=== PATIENT | female | born 1955 | race Caucasian/White ===

== ENCOUNTER → 2016-08-16 | Outpatient (REF) | payer MEDICARE, BC | LOC: M SFHCLERA 10:29 | PROVIDERS: ATTEND Physician Assistant | DX: R30.0 Dysuria (principal) | CPT/HCPCS: 81002; 87086; G0463 ==

== ENCOUNTER → 2016-11-30 | Outpatient (CLI) | payer MEDICARE, BC ==
--- NOTE | 2016-11-30 16:05 | REP ---
HISTORY: Pain. COMPARISON: Left knee, three view exam of 12/24/2009. Five views of the right knee show tricompartmental marginal osteophytosis without evidence of an acute fracture or dislocation. There is slight asymmetric patellofemoral joint space narrowing. IMPRESSION: Chronic changes. Five views of the left knee show tricompartmental marginal osteophytosis, increased from the prior exam with slight asymmetric patellofemoral joint space narrowing. There is no acute fracture or dislocation. IMPRESSION: Chronic changes as described above.
== END ==
LOC: M CLY 10:44
PROVIDERS: ATTEND Family Medicine
DX: M25.561 Pain in right knee (principal); M25.562 Pain in left knee; M25.762 Osteophyte, left knee; D64.9 Anemia, unspecified; E78.2 Mixed hyperlipidemia; R61 Generalized hyperhidrosis; R23.2 Flushing
CPT/HCPCS: 73564; 82533; G0463

== ENCOUNTER → 2017-04-08 | Outpatient (CLI) | payer MEDICARE, BC ==
--- NOTE | 2017-04-08 09:32 | REP ---
CHEST, TWO VIEWS: No comparison. There is no evidence of acute infiltrate. No pleural effusion is seen. The heart is normal in size. The mediastinal silhouette is unremarkable. The visualized osseous structures are intact. There is mild calcification of the thoracic aorta. IMPRESSION: No acute pulmonary disease.
== END ==
LOC: M CLY 08:28
PROVIDERS: ATTEND Family Medicine
DX: J45.30 Mild persistent asthma, uncomplicated (principal)
CPT/HCPCS: 71020; G0463

== ENCOUNTER → 2017-08-26 | Outpatient (REF) | payer MEDICARE, BC ==
[2017-08-26 11:41] LABS: BASO # 0.1 10^3/uL (0.0-0.2); BASO % 0.6 % (0.0-1.0); EOS # 0.4 10^3/uL (0.0-0.50); EOS % 2.2 % (0.0-3.0); HEMATOCRIT 45.3 % (36.0-47.0); HEMOGLOBIN 14.4 g/dl (12.0-16.0); IMMATURE GRANULOCYTE % 0.4 % (0-3.0); LYMPH # 3.3 10^3/uL (1.5-4.5); LYMPH % 20.9 % (24.0-44.0); MEAN CORPUSCULAR HEMOGLOBIN 27.3 pg (27.0-33.0); MEAN CORPUSCULAR HGB CONC 31.8 g/dl (32.0-36.5); MEAN CORPUSCULAR VOLUME 85.8 fl (80.0-96.0); MONO # 1.4 10^3/uL (0.0-0.8); MONO % 8.6 % (0.0-5.0); NEUTROPHILS # 10.7 10^3/uL (1.8-7.7); NEUTROPHILS % 67.3 % (36.0-66.0); PLATELET COUNT, AUTOMATED 498 10^3/uL (150-450); RED BLOOD COUNT 5.28 10^6/uL (4.00-5.40); RED CELL DISTRIBUTION WIDTH 14.1 % (11.5-14.5); WHITE BLOOD COUNT 15.9 10^3/uL (4.0-10.0)
[2017-08-26 12:19] LABS: TOTAL T3 137.1 NG/DL (60.0-181.0); VITAMIN B12 LEVEL 332 PG/ML (247-911)
[2017-08-26 12:20] LABS: FOLATE 9.2 NG/ML (>5.4)
[2017-08-26 12:23] LABS: ALBUMIN 3.6 GM/DL (3.2-5.2); ALBUMIN/GLOBULIN RATIO 0.95 (1.00-1.93); ALKALINE PHOSPHATASE 123 U/L (45-117); ALT/SGPT 11 U/L (12-78); ANION GAP 9 MEQ/L (8-16); AST/SGOT 8 U/L (7-37); BILIRUBIN,TOTAL 0.6 MG/DL (0.2-1.0); BLOOD UREA NITROGEN 11 MG/DL (7-18); C REACTIVE PROTEIN QUANTITATIV 3.56 MG/DL (0.00-0.30); CALCIUM LEVEL 9.3 MG/DL (8.8-10.2); CARBON DIOXIDE LEVEL 28 MEQ/L (21-32); CHLORIDE LEVEL 102 MEQ/L (98-107); CREATININE FOR GFR 0.82 MG/DL (0.55-1.30); GLOMERULAR FILTRATION RATE > 60.0 (>45); GLUCOSE, FASTING 95 MG/DL (70-100); IRON (FE) 67 UG/DL (50-170); MAGNESIUM LEVEL 2.2 MG/DL (1.8-2.4); POTASSIUM SERUM 4.7 MEQ/L (3.5-5.1); SODIUM LEVEL 139 MEQ/L (136-145); THYROXINE (T4) 10.6 UG/DL (4.5-12.0); TOTAL PROTEIN 7.4 GM/DL (6.4-8.2)
[2017-08-26 12:30] LABS: ERYTHROCYTE SEDIMENTATION RATE 5 mm/hr (0-30)
== END ==
LOC: M SFHCCLAY 09:27
DX: D64.9 Anemia, unspecified (principal); R53.1 Weakness; M06.9 Rheumatoid arthritis, unspecified
CPT/HCPCS: 82746

== ENCOUNTER 2018-05-16 11:08 | Outpatient (CLI) | payer MEDICARE, BC ==
[2018-05-16] MEDS: FILTER 1.2 MICRON (ADULT TPN/MANNITOL/REMICADE) XX (11:30)
[2018-05-16] MEDS: ACETAMINOPHEN 650MG PO PRIOR TO INFUSION PO (11:30)
[2018-05-16] MEDS ORDERED: NS 1,000 ML IV (11:30)
[2018-05-16] MEDS: inFLIXimab INJECTION 300 MG in NS 220 ML IV (12:10)
== END 2018-05-16 14:45 | disposition home or self-care (01) ==
LOC: M INFU 11:08
DX: M05.79 Rheumatoid arthritis with rheumatoid factor of multiple sites without organ or systems involvement (principal); Z88.0 Allergy status to penicillin; Z88.5 Allergy status to narcotic agent; Z88.8 Allergy status to other drugs, medicaments and biological substances; Z88.2 Allergy status to sulfonamides
CPT/HCPCS: J1745

== ENCOUNTER 2018-05-30 12:47 | Outpatient (CLI) | payer MEDICARE ==
[~2018-05-30] VITALS: Ht 160 cm; Wt 61.7 kg
[2018-05-30] VITALS (8 sets, daily range): BP systolic 111–149; BP diastolic 59–72
[~2018-05-30 12:47] MED LIST: ACET30TAB PO; ALBU20IN; ASPI81TA85 PO; CYMB60CA3 PO; INFL10VL IV; MOBI4TAB PO; POTA10TA16 PO; PREV15CA18 PO; SIMV40TA2 PO; VITA100054 PO; ZYRTTAB8 PO
[2018-05-30] MEDS ORDERED: FILTER 1.2 MICRON (ADULT TPN/MANNITOL/REMICADE) XX ONE (14:00)
[2018-05-30] MEDS ORDERED: inFLIXimab INJECTION 300 MG in NS 220 ML IV ONE (14:00)
[2018-05-30] MEDS ORDERED: ACETAMINOPHEN 650MG PO PRIOR TO INFUSION PO ONE (14:00)
[2018-05-30] MEDS ORDERED: NS 1,000 ML IV SCH (14:00)
== END 2018-05-30 15:50 | disposition home or self-care (01) ==
LOC: M INFU 12:47
PROVIDERS: ATTEND Internal Medicine
DX: M05.79 Rheumatoid arthritis with rheumatoid factor of multiple sites without organ or systems involvement (principal); Z88.1 Allergy status to other antibiotic agents; Z88.5 Allergy status to narcotic agent; Z88.8 Allergy status to other drugs, medicaments and biological substances; Z88.2 Allergy status to sulfonamides
CPT/HCPCS: 96413; 96415; J1745

== ENCOUNTER 2018-06-27 11:44 | Outpatient (CLI) | payer MEDICARE ==
[~2018-06-27] VITALS: Ht 160 cm; Wt 61.7 kg
[2018-06-27] VITALS (8 sets, daily range): BP systolic 122–158; BP diastolic 62–83
[2018-06-27] MEDS ORDERED: inFLIXimab INJECTION 300 MG in NS 220 ML IV ONE (13:00)
[2018-06-27] MEDS ORDERED: NS 1,000 ML IV SCH (13:00)
[2018-06-27] MEDS ORDERED: ACETAMINOPHEN 650MG PO PRIOR TO INFUSION PO ONE (13:00)
[2018-06-27] MEDS ORDERED: FILTER 1.2 MICRON (ADULT TPN/MANNITOL/REMICADE) XX ONE (13:00)
== END 2018-06-27 14:45 | disposition home or self-care (01) ==
LOC: M INFU 11:44
PROVIDERS: ATTEND Internal Medicine
DX: M05.79 Rheumatoid arthritis with rheumatoid factor of multiple sites without organ or systems involvement (principal); Z88.0 Allergy status to penicillin; Z88.5 Allergy status to narcotic agent; Z88.8 Allergy status to other drugs, medicaments and biological substances; Z88.2 Allergy status to sulfonamides; Z88.1 Allergy status to other antibiotic agents
CPT/HCPCS: 96413; 96415; J1745

== ENCOUNTER 2018-08-29 13:15 | Outpatient (CLI) | payer MEDICARE ==
[~2018-08-29] VITALS: Ht 160 cm; Wt 61.7 kg
[2018-08-29] VITALS (8 sets, daily range): BP systolic 104–157; BP diastolic 60–77
[2018-08-29] MEDS ORDERED: NS 1,000 ML IV SCH (13:30)
[2018-08-29] MEDS ORDERED: FILTER 1.2 MICRON (ADULT TPN/MANNITOL/REMICADE) XX ONE (13:30)
[2018-08-29] MEDS ORDERED: ACETAMINOPHEN 650MG PO PRIOR TO INFUSION PO ONE (13:30)
[2018-08-29] MEDS ORDERED: inFLIXimab INJECTION 300 MG in NS 220 ML IV ONE (14:00)
== END 2018-08-29 16:15 | disposition home or self-care (01) ==
LOC: M INFU 13:15
PROVIDERS: ATTEND Internal Medicine
DX: M05.79 Rheumatoid arthritis with rheumatoid factor of multiple sites without organ or systems involvement (principal)
CPT/HCPCS: 96413; 96415; J1745

== ENCOUNTER → 2018-10-18 | Outpatient (REF) | payer MEDICARE ==
[~2018-10-18] MED LIST changes: +ACET-716 PO; -ACET30TAB PO
[2018-10-19 11:54] LABS: FREE T4 0.82 NG/DL (0.76-1.46); THYROID STIMULATING HORMONE 1.26 uIU/ML (0.358-3.740)
[2018-10-19 11:55] LABS: TOTAL T3 121.2 NG/DL (60.0-181.0)
== END ==
LOC: M SFHCCLAY 14:57
PROVIDERS: ATTEND Family Medicine
DX: Z86.39 Personal history of other endocrine, nutritional and metabolic disease (principal)

== ENCOUNTER 2018-10-27 12:01 | Outpatient (CLI) | payer MEDICARE ==
[~2018-10-27] VITALS: Ht 160 cm; Wt 61.7 kg
[2018-10-27 12:24] VITALS: BP 148/89
[2018-10-27] MEDS ORDERED: inFLIXimab INJECTION 300 MG in NS 220 ML IV ONE (12:45)
[2018-10-27] MEDS ORDERED: ACETAMINOPHEN 650MG PO PRIOR TO INFUSION PO ONE (12:45)
[2018-10-27] MEDS ORDERED: FILTER 1.2 MICRON (ADULT TPN/MANNITOL/REMICADE) XX ONE (12:45)
[2018-10-27] MEDS ORDERED: NS 1,000 ML IV SCH (12:45)
[2018-10-27 15:20] VITALS: BP 124/66
== END 2018-10-27 15:30 | disposition home or self-care (01) ==
LOC: M INFU 12:01
PROVIDERS: ATTEND Internal Medicine
DX: M05.79 Rheumatoid arthritis with rheumatoid factor of multiple sites without organ or systems involvement (principal); Z88.0 Allergy status to penicillin; Z88.8 Allergy status to other drugs, medicaments and biological substances; Z88.2 Allergy status to sulfonamides; Z88.1 Allergy status to other antibiotic agents; Z88.5 Allergy status to narcotic agent
CPT/HCPCS: 96413; 96415; J1745

== ENCOUNTER → 2018-11-14 | Outpatient (REF) | payer MEDICARE ==
[2018-11-14 17:26] LABS: BASO % 0.3 % (0.0-1.0); EOS # 0.1 10^3/uL (0.0-0.50); EOS % 1.7 % (0.0-3.0); HEMATOCRIT 47.8 % (36.0-47.0); HEMOGLOBIN 15.1 g/dl (12.0-15.5); LYMPH # 2.5 10^3/uL (1.5-4.5); LYMPH % 39.6 % (24.0-44.0); MEAN CORPUSCULAR HEMOGLOBIN 29.8 pg (27.0-33.0); MEAN CORPUSCULAR HGB CONC 31.6 g/dl (32.0-36.5); MEAN CORPUSCULAR VOLUME 94.5 fl (80.0-96.0); MONO % 15.6 % (0.0-5.0); NEUTROPHILS # 2.7 10^3/uL (1.8-7.7); NEUTROPHILS % 42.5 % (36.0-66.0); PLATELET COUNT, AUTOMATED 315 10^3/uL (150-450); RED BLOOD COUNT 5.06 10^6/uL (4.00-5.40); WHITE BLOOD COUNT 6.4 10^3/uL (4.0-10.0)
[2018-11-14 17:44] LABS: ALBUMIN 3.6 GM/DL (3.2-5.2); ALT/SGPT 21 U/L (12-78); BILIRUBIN,TOTAL 0.3 MG/DL (0.2-1.0); BLOOD UREA NITROGEN 11 MG/DL (7-18); CALCIUM LEVEL 8.7 MG/DL (8.8-10.2); CARBON DIOXIDE LEVEL 28 MEQ/L (21-32); CHLORIDE LEVEL 105 MEQ/L (98-107); CREATININE FOR GFR 0.63 MG/DL (0.55-1.30); GLOMERULAR FILTRATION RATE > 60.0 (>45); GLUCOSE, FASTING 78 MG/DL (70-100); MAGNESIUM LEVEL 2.3 MG/DL (1.8-2.4); POTASSIUM SERUM 4.6 MEQ/L (3.5-5.1); SODIUM LEVEL 141 MEQ/L (136-145); TOTAL PROTEIN 6.9 GM/DL (6.4-8.2)
== END ==
LOC: M SFHCCLAY 13:47
PROVIDERS: ATTEND Family Medicine
DX: B34.9 Viral infection, unspecified (principal); M79.10 Myalgia, unspecified site; M06.9 Rheumatoid arthritis, unspecified

== ENCOUNTER → 2018-11-14 | Outpatient (CLI) | payer MEDICARE ==
--- NOTE | 2018-11-14 14:36 | REP ---
Chest two views HISTORY: Cough Comparison: 04/08/2017 The lungs are clear. The heart is normal in size. The pulmonary vasculature is normal in appearance. The bony structure is intact. IMPRESSION: No acute disease.
== END ==
LOC: M CLY 14:03
PROVIDERS: ATTEND Family Medicine
DX: R05 Cough (principal)

== ENCOUNTER 2019-01-18 11:57 | Outpatient (CLI) | payer MEDICARE ==
[~2019-01-18] VITALS: Ht 160 cm; Wt 66.2 kg
[2019-01-18 12:10] VITALS: BP 120/61
[2019-01-18] MEDS ORDERED: FILTER 1.2 MICRON (ADULT TPN/MANNITOL/REMICADE) XX ONE (12:15)
[2019-01-18] MEDS ORDERED: inFLIXimab INJECTION 300 MG in NS 220 ML IV ONE (12:15)
[2019-01-18] MEDS ORDERED: ACETAMINOPHEN 650MG PO PRIOR TO INFUSION PO ONE (12:15)
[2019-01-18] MEDS ORDERED: NS 1,000 ML IV SCH (12:15)
[2019-01-18 14:00] VITALS: BP 157/75
== END 2019-01-18 14:00 | disposition home or self-care (01) ==
LOC: M INFU 11:57
PROVIDERS: ATTEND Nurse Practitioner
DX: M05.79 Rheumatoid arthritis with rheumatoid factor of multiple sites without organ or systems involvement (principal); Z88.0 Allergy status to penicillin; Z88.2 Allergy status to sulfonamides; Z88.5 Allergy status to narcotic agent; Z88.8 Allergy status to other drugs, medicaments and biological substances
CPT/HCPCS: 96413; J1745

== ENCOUNTER 2019-03-15 10:55 | Outpatient (CLI) | payer MEDICARE ==
[~2019-03-15] VITALS: Ht 160 cm; Wt 66.2 kg
[2019-03-15 11:00] VITALS: BP 141/83
[2019-03-15] MEDS: NS 1,000 ML IV SCH (11:15)
[2019-03-15] MEDS: ACETAMINOPHEN 650MG PO PRIOR TO INFUSION PO ONE (11:39)
[2019-03-15] MEDS: FILTER 1.2 MICRON (ADULT TPN/MANNITOL/REMICADE) XX ONE (11:41)
[2019-03-15] MEDS: inFLIXimab INJECTION 300 MG in NS 220 ML IV ONE (11:41)
[2019-03-15 13:10] VITALS: BP 147/69
== END 2019-03-15 13:10 | disposition home or self-care (01) ==
LOC: M INFU 10:55
PROVIDERS: ATTEND Nurse Practitioner
DX: M05.79 Rheumatoid arthritis with rheumatoid factor of multiple sites without organ or systems involvement (principal); Z88.0 Allergy status to penicillin; Z88.1 Allergy status to other antibiotic agents; Z88.2 Allergy status to sulfonamides; Z88.5 Allergy status to narcotic agent; Z88.8 Allergy status to other drugs, medicaments and biological substances
CPT/HCPCS: 96413; J1745

== ENCOUNTER 2019-05-10 11:09 | Outpatient (CLI) | payer MEDICARE ==
[~2019-05-10] VITALS: Ht 160 cm; Wt 66.2 kg
[~2019-05-10 11:09] MED LIST changes: -SIMV40TA2 PO; +SIMV40TA20 PO
[2019-05-10 11:15] VITALS: BP 140/72
[2019-05-10] MEDS ORDERED: ACETAMINOPHEN 650MG PO PRIOR TO INFUSION PO ONE (11:30)
[2019-05-10] MEDS ORDERED: inFLIXimab INJECTION 300 MG in NS 220 ML IV ONE (11:30)
[2019-05-10] MEDS ORDERED: NS 1,000 ML IV SCH (11:30)
[2019-05-10] MEDS ORDERED: FILTER 1.2 MICRON (ADULT TPN/MANNITOL/REMICADE) XX ONE (11:30)
[2019-05-10 13:13] VITALS: BP 141/66
== END 2019-05-10 13:15 | disposition home or self-care (01) ==
LOC: M INFU 11:09
PROVIDERS: ATTEND Nurse Practitioner
DX: M05.79 Rheumatoid arthritis with rheumatoid factor of multiple sites without organ or systems involvement (principal); Z88.1 Allergy status to other antibiotic agents; Z88.2 Allergy status to sulfonamides; Z88.5 Allergy status to narcotic agent
CPT/HCPCS: 96413; J1745

== ENCOUNTER 2019-07-05 10:58 | Outpatient (CLI) | payer MEDICARE ==
[~2019-07-05] VITALS: Ht 160 cm; Wt 66.2 kg
[2019-07-05] MEDS ORDERED: NS 1,000 ML IV SCH (11:15)
[2019-07-05] MEDS ORDERED: ACETAMINOPHEN 650MG PO PRIOR TO INFUSION PO ONE (11:15)
[2019-07-05] MEDS ORDERED: inFLIXimab INJECTION 300 MG in NS 220 ML IV ONE (11:30)
[2019-07-05 11:33] VITALS: BP 140/68
[2019-07-05 12:45] VITALS: BP 123/64
== END 2019-07-05 12:45 | disposition home or self-care (01) ==
LOC: M INFU 10:58
PROVIDERS: ATTEND Nurse Practitioner
DX: M05.79 Rheumatoid arthritis with rheumatoid factor of multiple sites without organ or systems involvement (principal); Z88.0 Allergy status to penicillin; Z88.1 Allergy status to other antibiotic agents; Z88.2 Allergy status to sulfonamides; Z88.5 Allergy status to narcotic agent; Z88.8 Allergy status to other drugs, medicaments and biological substances
CPT/HCPCS: 96413; J1745

== ENCOUNTER 2019-08-30 11:14 | Outpatient (CLI) | payer MEDICARE ==
[~2019-08-30] VITALS: Ht 160 cm; Wt 67.0 kg
[2019-08-30] MEDS ORDERED: NS 1,000 ML IV SCH (12:00)
[2019-08-30] MEDS ORDERED: inFLIXimab INJECTION 300 MG in NS 220 ML IV ONE (12:00)
[2019-08-30] MEDS ORDERED: ACETAMINOPHEN 650MG PO PRIOR TO INFUSION PO ONE (12:00)
== END 2019-08-30 13:25 | disposition home or self-care (01) ==
LOC: M INFU 11:14
PROVIDERS: ATTEND Nurse Practitioner
DX: M05.79 Rheumatoid arthritis with rheumatoid factor of multiple sites without organ or systems involvement (principal); Z88.0 Allergy status to penicillin; Z88.1 Allergy status to other antibiotic agents; Z88.2 Allergy status to sulfonamides; Z88.5 Allergy status to narcotic agent; Z88.8 Allergy status to other drugs, medicaments and biological substances
CPT/HCPCS: 96413; J1745

== ENCOUNTER → 2019-10-13 | Outpatient (CLI) | payer MEDICARE ==
[~2019-10-13] MED LIST changes: +VITAD1000T PO
== END ==
LOC: M LABSMTC 11:02
PROVIDERS: ATTEND Anesthesiology
DX: Z01.818 Encounter for other preprocedural examination (principal); Z11.59 Encounter for screening for other viral diseases

== ENCOUNTER 2019-10-16 07:09 | Day surgery (SDC) | payer MEDICARE ==
[~2019-10-16] VITALS: Ht 160 cm; Wt 67.0 kg
[~2019-10-16 07:09] MED LIST changes: +ACETAMINOPHEN 325 MG TAB PO PRN; +BALANCED SALT IRRIGATION SOLUTION 500ML BAG (FOR OR EYE MACHINE) As Ordered ONE; +CEFUROXIME 1MG/0.1ML INTRACAMERAL INJ As Ordered ONE; +CYCLOPENTOLATE 2% OPHTH SOLN 2ML BTL OS ONE; +HEALON DUET PRO(HEALON 10MG/ML 0.55ML & HEALON ENDOCOAT 30MG/ML 0.85ML) As Ordered ONE; +LIDOCAINE 1% SDV 5ML VIAL As Ordered ONE; +LIDOCAINE 3.5 % 1ML OPHTH TOPICAL GEL OU ONE; +OFLOXACIN 0.3 % (OCUFLOX) OPTH SOL 5ML OS ONE; +PHENYLEPHRINE 2.5% OPHTH SOL 2ML OS ONE; +PHENYLEPHRINE HCL 10 % OPHTH. SOL 5ML OS PRN; +POVIDONE-IODINE 5% OPHTH PREP SOL 30ML As Ordered ONE; +PROPARACAINE 0.5% OPHTH SOL 15ML OS PRN; +TROPICAMIDE 1% OPHTH SOLN 2ML OS ONE
[2019-10-16] MEDS ORDERED: MIDAZOLAM INJ 2MG/2ML VIAL (J2250 PER 1MG) As Ordered ONE (07:49)
[2019-10-16] MEDS ORDERED: fentaNYL 100 MCG/2 ML INJECTION (J3010) As Ordered ONE (07:49)
[2019-10-16] MEDS ORDERED: KETOROLAC 0.5% OPHTH SOLN OS ONE (09:30)
[2019-10-16] MEDS ORDERED: TRIMETHOBENZAMIDE 300 MG CAP PO PRN (09:30)
[2019-10-16 09:45] VITALS: BP 134/61
--- NOTE | 2019-10-18 09:41 | RO ---
DATE OF PROCEDURE: 10/16/2019 PREOPERATIVE DIAGNOSIS: Age-related nuclear cataract left eye. POSTOPERATIVE DIAGNOSIS: Age-related nuclear cataract left eye. PROCEDURE PERFORMED: Phacoemulsification with posterior chamber intraocular lens implantation and ORA. Lens used was an AU00T0, 24.0 diopters. SURGEON: Belem Crowell MD DIRECTOR OF SOCIAL WORK: ANESTHESIA: Topical sedation. DESCRIPTION OF PROCEDURE: The patient was prepped and draped in usual fashion. A lid speculum was placed between the lids. The eye was fixated. A stab incision was made into the anterior chamber. 1% nonpreserved lidocaine was instilled, and viscoelastic was instilled. The eye was refixated. A 2.4 mm keratome was used to make a clear corneal temporal limbal incision. Capsulorrhexis was begun with a cystotome and carried out in circular fashion with capsulorrhexis forceps. Lens was hydrodissected and the phacoemulsification unit used to groove the nucleus in two meridians. The nucleus was cracked into four quadrants. Each quadrant was removed with the phacoemulsification unit. Any remaining cortex was removed with the irrigation and aspiration (I and A) unit. Healon was instilled into the eye, and the pressure was checked with a handheld tonometer. The ORA unit was placed over the eye and focused on the apex of the cornea. The patient was properly aligned, and measurements were made. The measurements then gave an appropriate lens power, which was used. The intraocular lens was placed into its break and load operator and injected into the eye. Then manipulation was used to center the lens. Any remaining viscoelastic was removed with the I and A unit. The wound was hydrated, and Miochol and cefuroxime were instilled. Patient tolerated procedure well and went to recovery room in stable condition.
== END 2019-10-16 09:50 | disposition home or self-care (01) ==
LOC: M SDC 07:09
PROVIDERS: ATTEND Ophthalmology
DX: H25.12 Age-related nuclear cataract, left eye (principal); I25.10 Atherosclerotic heart disease of native coronary artery without angina pectoris; E78.49 Other hyperlipidemia; K21.9 Gastro-esophageal reflux disease without esophagitis; J45.909 Unspecified asthma, uncomplicated; F41.9 Anxiety disorder, unspecified; F32.9 Major depressive disorder, single episode, unspecified; Z79.82 Long term (current) use of aspirin; Z79.899 Other long term (current) drug therapy; Z88.0 Allergy status to penicillin; Z88.2 Allergy status to sulfonamides; Z88.5 Allergy status to narcotic agent; Z88.1 Allergy status to other antibiotic agents; Z88.8 Allergy status to other drugs, medicaments and biological substances
CPT/HCPCS: 66984; 92015; J2250; J3010; V2632

== ENCOUNTER 2019-10-25 10:57 | Outpatient (CLI) | payer MEDICARE ==
[~2019-10-25] VITALS: Ht 160 cm; Wt 67.0 kg
[~2019-10-25 10:57] MED LIST changes: -ACETAMINOPHEN 325 MG TAB PO PRN; -BALANCED SALT IRRIGATION SOLUTION 500ML BAG (FOR OR EYE MACHINE) As Ordered ONE; -CEFUROXIME 1MG/0.1ML INTRACAMERAL INJ As Ordered ONE; -CYCLOPENTOLATE 2% OPHTH SOLN 2ML BTL OS ONE; -HEALON DUET PRO(HEALON 10MG/ML 0.55ML & HEALON ENDOCOAT 30MG/ML 0.85ML) As Ordered ONE; -LIDOCAINE 1% SDV 5ML VIAL As Ordered ONE; -LIDOCAINE 3.5 % 1ML OPHTH TOPICAL GEL OU ONE; -OFLOXACIN 0.3 % (OCUFLOX) OPTH SOL 5ML OS ONE; -PHENYLEPHRINE 2.5% OPHTH SOL 2ML OS ONE; -PHENYLEPHRINE HCL 10 % OPHTH. SOL 5ML OS PRN; -POVIDONE-IODINE 5% OPHTH PREP SOL 30ML As Ordered ONE; -PROPARACAINE 0.5% OPHTH SOL 15ML OS PRN; -TROPICAMIDE 1% OPHTH SOLN 2ML OS ONE
[2019-10-25 11:00] VITALS: BP 151/67
[2019-10-25] MEDS ORDERED: inFLIXimab INJECTION 300 MG in NS 220 ML IV ONE (11:30)
[2019-10-25] MEDS ORDERED: NS 1,000 ML IV SCH (11:30)
[2019-10-25] MEDS ORDERED: ACETAMINOPHEN 650MG PO PRIOR TO INFUSION PO ONE (11:30)
[2019-10-25 11:45] VITALS: BP 143/67
[2019-10-25 12:45] VITALS: BP 151/72
== END 2019-10-25 12:45 | disposition home or self-care (01) ==
LOC: M INFU 10:57
PROVIDERS: ATTEND Nurse Practitioner
DX: M05.79 Rheumatoid arthritis with rheumatoid factor of multiple sites without organ or systems involvement (principal); Z88.0 Allergy status to penicillin; Z88.2 Allergy status to sulfonamides; Z88.5 Allergy status to narcotic agent; Z88.8 Allergy status to other drugs, medicaments and biological substances
CPT/HCPCS: 96413; J1745

== ENCOUNTER → 2022-04-27 | Outpatient (REF) | payer MEDICARE ==
[~2022-04-27] MED LIST changes: -ASPI81TA85 PO; +ASPI81TA86 PO; -CYMB60CA3 PO; +CYMB60CA4 PO; +POTA-149 PO; -POTA10TA16 PO; -PREV15CA18 PO; +PREV15CA24 PO; +VITA100093 PO; -VITAD1000T PO
[2022-04-27 17:15] LABS: BASO # 0.1 10^3/uL (0.0-0.2); BASO % 0.8 % (0.0-1.0); EOS # 0.2 10^3/uL (0.0-0.5); EOS % 1.4 % (0.0-3.0); HEMATOCRIT 36.6 % (36.0-47.0); HEMOGLOBIN 11.3 g/dl (12.0-15.5); LYMPH # 1.7 10^3/uL (1.5-5.0); LYMPH % 14.4 % (24.0-44.0); MEAN CORPUSCULAR HEMOGLOBIN 30.1 pg (27.0-33.0); MEAN CORPUSCULAR HGB CONC 30.9 g/dl (32.0-36.5); MEAN CORPUSCULAR VOLUME 97.3 fl (80.0-96.0); MONO # 1.1 10^3/uL (0.0-0.8); MONO % 9.3 % (2.0-8.0); NEUTROPHILS # 8.5 10^3/uL (1.5-8.5); NEUTROPHILS % 73.8 % (36.0-66.0); PLATELET COUNT, AUTOMATED 340 10^3/uL (150-450); RED BLOOD COUNT 3.76 10^6/uL (4.00-5.40); WHITE BLOOD COUNT 11.5 10^3/uL (4.0-10.0)
[2022-04-27 17:33] LABS: ALBUMIN 3.1 GM/DL (3.2-5.2); ALT/SGPT 15 U/L (12-78); BILIRUBIN,TOTAL 0.5 MG/DL (0.2-1.0); BLOOD UREA NITROGEN 15 MG/DL (7-18); CALCIUM LEVEL 9.1 MG/DL (8.8-10.2); CARBON DIOXIDE LEVEL 28 MEQ/L (21-32); CHLORIDE LEVEL 109 MEQ/L (98-107); CREATININE FOR GFR 0.73 MG/DL (0.55-1.30); GLOMERULAR FILTRATION RATE > 60.0 (>45); GLUCOSE, FASTING 100 MG/DL (70-100); POTASSIUM SERUM 4.4 MEQ/L (3.5-5.1); SODIUM LEVEL 142 MEQ/L (136-145)
== END ==
LOC: M SFHCCLAY 09:25
PROVIDERS: ATTEND Physician Assistant
DX: R30.0 Dysuria (principal)

== ENCOUNTER → 2022-05-04 | Outpatient (REF) | payer MEDICARE ==
[2022-05-04 13:53] LABS: APPEARANCE, URINE MANUAL HAZY (CLEAR); COLOR, URINE MANUAL YELLOW (YELLOW)
[2022-05-04 13:54] LABS: SPECIFIC GRAVITY,URINE MANUAL 1.005 (1.002-1.035)
[2022-05-04 13:55] LABS: BILIRUBIN, URINE MANUAL 2+ (NEGATIVE); BLOOD URINE MANUAL POSITIVE (NEGATIVE); GLUCOSE, URINE (UA) MANUAL NEGATIVE (NEGATIVE); KETONE, URINE MANUAL NEGATIVE (NEGATIVE); LEUKOCYTE ESTERASE, URINE MAN NEGATIVE (NEGATIVE); NITRITE, URINE MANUAL NEGATIVE (NEGATIVE); PROTEIN, URINE MANUAL NEGATIVE (NEGATIVE); UROBILINOGEN, URINE MANUAL 1 MG mg/dl (NORMAL)
[2022-05-04 14:07] LABS: RBC, URINE 20-30 /hpf (0-3); SQUAMOUS EPITHELIAL CELL URINE NONE SEEN /hpf (SMALL AMT); WBC, URINE NONE SEEN /hpf (0-3)
[2022-05-04 14:08] LABS: BACTERIA, URINE NONE SEEN; HYALINE CAST, URINE NONE SEEN /lpf (0-1)
== END ==
LOC: M SMT 13:10
PROVIDERS: ATTEND Physician Assistant
DX: R31.0 Gross hematuria (principal)

== ENCOUNTER → 2022-06-21 | Outpatient (CLI) | payer MEDICARE ==
[~2022-06-21] MED LIST changes: +ACET-645 PO; +ASPI81TA26 PO; +CETI10CH PO; +LANS-67 PO; +LOSA25TA13 PO; +POTA1TAB14 PO; +[UNRECOGNIZED DRUG - OTHER] IV
== END ==
LOC: M LABSMTC 11:00
PROVIDERS: ATTEND Anesthesiology
DX: Z01.812 Encounter for preprocedural laboratory examination (principal); Z20.822 Contact with and (suspected) exposure to COVID-19

== ENCOUNTER 2022-06-25 08:06 | Day surgery (SDC) | payer MEDICARE ==
[~2022-06-25] VITALS: Ht 160 cm; Wt 60.4 kg
[2022-06-25] MEDS ORDERED: LR 1,000 ML IV SCH (08:30)
[2022-06-25] MEDS ORDERED: ceFAZolin SOD 2 GM in IV 1 EA IV ONE (08:40)
[2022-06-25] MEDS ORDERED: propofoL 200 MG/20 ML VIAL As Ordered ONE (09:26)
[2022-06-25] MEDS ORDERED: MIDAZOLAM INJ 2MG/2ML VIAL As Ordered ONE (09:27)
[2022-06-25] MEDS ORDERED: fentaNYL 100 MCG/2 ML INJECTION As Ordered ONE (09:27)
[2022-06-25] MEDS ORDERED: OXYC1TAB23 PO (09:41)
[2022-06-25] MEDS ORDERED: FLOM0.4C39 PO (09:41)
[2022-06-25] MEDS ORDERED: PHENYLephrine 500MCG 5ML (100MCG/ML) SYRINGE As Ordered ONE (09:47)
[2022-06-25 10:35] VITALS: BP 123/69
== END 2022-06-25 10:44 | disposition home or self-care (01) ==
LOC: M SDC 08:06
PROVIDERS: ATTEND Urology
DX: N20.0 Calculus of kidney (principal); I10 Essential (primary) hypertension; E78.00 Pure hypercholesterolemia, unspecified; K21.9 Gastro-esophageal reflux disease without esophagitis; M06.9 Rheumatoid arthritis, unspecified; M54.9 Dorsalgia, unspecified; F41.9 Anxiety disorder, unspecified; F32.A Depression, unspecified; J45.909 Unspecified asthma, uncomplicated; Z88.0 Allergy status to penicillin; Z88.1 Allergy status to other antibiotic agents; Z88.5 Allergy status to narcotic agent; Z88.2 Allergy status to sulfonamides; Z88.8 Allergy status to other drugs, medicaments and biological substances; Z79.899 Other long term (current) drug therapy; Z79.891 Long term (current) use of opiate analgesic; Z79.82 Long term (current) use of aspirin
CPT/HCPCS: 50590; 74018; J2370

== ENCOUNTER → 2022-07-28 | Outpatient (REF) | payer MEDICARE ==
[~2022-07-28] MED LIST changes: +FLOM0.4C39 PO; +OXYC1TAB23 PO
== END ==
LOC: M SMT 12:55
PROVIDERS: ATTEND Physician Assistant
DX: Z48.816 Encounter for surgical aftercare following surgery on the genitourinary system (principal)

== ENCOUNTER → 2023-02-11 | Outpatient (REF) | payer OTHER ==
[~2023-02-11] MED LIST changes: -ALBU20IN; +ALBU5SOL7; +POTA-298 PO; -POTA1TAB14 PO
== END ==
LOC: M SFHCCLAY 09:51
PROVIDERS: ATTEND Family Medicine
DX: Z53.9 Procedure and treatment not carried out, unspecified reason (principal)